=== PATIENT | female | born 1995 | race Hispanic/Latino ===

== ENCOUNTER 2018-12-18 17:56 | Emergency (ER) | payer OTHER ==
[2018-12-18] MEDS ORDERED: Sodium Chloride 0.9% 1,000 ML IV STA (18:19)
[2018-12-18 18:43] LABS: BASO % 0.4 % (0.0-2.0); EOS # 0.1 K/uL (0.0-0.7); EOS % 0.6 % (0.0-4.0); LYMPH # 2.6 K/uL (1.0-4.3); LYMPH % 21.6 % (20.0-40.0); MEAN CORPUSCULAR HEMOGLOBIN 30.9 pg (27.0-31.0); MEAN CORPUSCULAR HGB CONC 33.6 g/dL (33.0-37.0); MONO # 0.7 K/uL (0.0-0.8); MONO % 5.6 % (0.0-10.0); NEUT # 8.8 K/uL (1.8-7.0); NEUT % 71.8 % (50.0-75.0); RBC 4.52 Mil/uL (3.80-5.20); WHITE BLOOD COUNT 12.3 K/uL (4.8-10.8)
[2018-12-18 18:54] LABS: ALB/GLOB RATIO 1.4 (1.0-2.1); ALBUMIN 4.5 g/dL (3.5-5.0); ALT/SGPT 23 U/L (9-52); AST/SGOT 23 U/L (14-36); BLOOD UREA NITROGEN 15 mg/dl (7-17); CALCIUM 9.5 mg/dL (8.4-10.2); GFR NON-AFRICAN AMERICAN > 60
--- NOTE | 2018-12-18 19:04 | ED PDOC ---
HPI: SOB/CHF/COPD Time Seen by Provider: 12/18/18 18:09 Chief Complaint (Nursing): Shortness Of Breath Chief Complaint (Provider): Shortness Of Breath History Per: Patient History/Exam Limitations: no limitations Onset/Duration Of Symptoms: Days (x 4) Current Symptoms Are (Timing): Still Present Quality: "Pain" Associated Symptoms: Fever, Chest Pain (mild pressure) Additional Complaint(s): 23 year old female with a history of anxiety presents to the ED for evaluation of shortness of breath for four days. Patient reports since she feels as though she is unable to take a deep breath. She also reports mild chest pressure. Patient is not getting winded with exertion and denies a decrease in exercise tolerance. Yesterday, patient was seen at an urgent care where she had blood work, a chest x-ray and an EKG done. Today, she was told that her D-dimer is at "the high end of normal". Given reported shortness of breath, she was advised to come to the ER for possible CT. Patient does not take control p ills, but has a hormone infused IUD in place. She states that she was on a round trip flight to [place] last week. Denies cough, fever, leg swelling and calf pain. PMD: in [place] (no local doctor yet) - Risk Factors PE Risk Factors: Neg: Extremity Immobilization/Fx, Recent Major Surgery, Recent Hospitalization Past Medical History Reviewed: Historical Data, Nursing Documentation, Vital Signs Vital Signs: Last Vital Signs Temp Pulse 74 12/18/18 18:02 Resp 18 12/18/18 18:02 BP 145/81 12/18/18 18:02 Pulse Ox 100 12/18/18 18:02 - Medical History PMH: Anxiety - Surgical History Surgical History: No Surg Hx - Family History Family History: Denies: No Known Family Hx, Other Other Family History: clotting disorders - Home Medications Home Medications: Ambulatory Orders Medication Instructions Recorded Albuterol HFA [Ventolin HFA 90 2 puff IH Q4H PRN #1 inh 12/18/18 mcg/actuation (8 g)] Fexofenadine HCl [AlessandraNf] 180 mg PO DAILY #30 tab 12/18/18 - Allergies Allergies/Adverse Reactions: Allergies Allergy/AdvReac Type Severity Reaction Status Date / Time Sulfa (Sulfonamide Allergy RASH Verified 12/18/18 18:02 Antibiotics) Review of Systems ROS Statement: Except As Marked, All Systems Reviewed And Found Negative Cardiovascular: Positive for: Chest Pain (pressure) Respiratory: Positive for: Shortness of Breath Physical Exam - Reviewed Nursing Documentation Reviewed: Yes Vital Signs Reviewed: Yes - Physical Exam Appears: Positive for: No Acute Distress Head Exam: Positive for: ATRAUMATIC, NORMOCEPHALIC Skin: Positive for: Warm, Dry Eye Exam: Positive for: EOMI, PERRL ENT: Negative for: Pharyngeal Erythema, Tonsillar Exudate Neck: Positive for: Painless ROM, Supple Cardiovascular/Chest: Positive for: Regular Rate, Rhythm. Negative for: Murmur Respiratory: Positive for: Normal Breath Sounds. Negative for: Respiratory Distress Gastrointestinal/Abdominal: Positive for: Soft. Negative for: Tenderness Back: Positive for: Normal Inspection. Negative for: Decreased ROM Extremity: Positive for: Normal ROM. Negative for: Pedal Edema, Calf Tenderness, Deformity Lymphatic: Negative for: Adenopathy Neurological/Psych: Positive for: Awake. Negative for: Motor/Sensory Deficits - Laboratory Results Result Diagrams: 12/18/18 18:36 12/18/18 18:36 Lab Results: D-Dimer, Quantitative 898 ng/mlDDU (0-230) H 12/18/18 18:36 Total Bilirubin 0.3 mg/dl (0.2-1.3) 12/18/18 18:36 AST 23 U/L (14-36) 12/18/18 18:36 ALT 23 U/L (9-52) 12/18/18 18:36 Alkaline Phosphatase 62 U/L (38-126) 12/18/18 18:36 Total Protein 7.7 G/DL (6.3-8.2) 12/18/18 18:36 Albumin 4.5 g/dL (3.5-5.0) 12/18/18 18:36 Globulin 3.2 gm/dL (2.2-3.9) 12/18/18 18:36 Albumin/Globulin Ratio 1.4 (1.0-2.1) 12/18/18 18:36 - ECG ECG: Positive for: Interpreted By Me, Viewed By Me ECG Rhythm: Positive for: Normal QRS, Normal ST Segment, Sinus Rhythm (normal) Rate: 79 O2 Sat by Pulse Oximetry: 100 Medical Decision Making Medical Decision Makin:18 Impression: shortness of breath Differential diagnoses include but are not limited to: anxiety, walking pneumonia Initial Plan: --CTA Chest --EKG --BNP --CMP --CBC --Mag --Phos --TSH --Troponin --Urine dip --Urine preg --D-dimer --NS IV 1,000 mls Name: CHAR WALDROP Exam Date: Dec 18, 2018 7:22:31 PM EDT Modality Type: CT\\SR Description: CTA CHEST Gender: F Laterality: Not applicable : 94 Referring Physician: Maryuri Amezcua EXAM: CTA Chest with Intravenous Contrast for Pulmonary Embolism CLINICAL HISTORY: SOB TECHNIQUE: Axial CTA images of the chest with intravenous contrast using a pulmonary embolism protocol. Reconstructed images were created and reviewed. 230.79 mGy-cm CONTRAST: With; [id number] 90ML was administered without incident. COMPARISON: None provided. FINDINGS: PULMONARY ARTERIES No evidence of central or segmental pulmonary embolism is seen. AORTA There is no evidence for aneurysm or dissection of the thoracic aorta. LUNGS The lungs appear clear. PLEURAL SPACES No evidence of pneumothorax. No pleural effusion. HEART Heart size is within normal limits. No significant pericardial effusion. LYMPH NODES No lymphadenopathy is evident. BONES No focal osseous abnormality or acute fracture. UPPER ABDOMEN Images of the upper abdomen are unremarkable. IMPRESSION: Unremarkable pulmonary embolism protocol CTA of the chest. Electronically signed on Dec 18, 2018 7:46:16 PM EDT by: Live Anders M.D., Certified by [facility], Diagnostic Radiology DW pt findings. Pt will be rx'd meds for possible reactive airway/seasonal allergies. Followup with [employer] or PMD in 48 hours for reevaluation and possible referral to pulmonology or video camera operator Scribe Attestation: Documented by Ntay Jackson, acting as a scribe for Maryuri Amezcua MD Provider Scribe Attestation: All medical record entries made by the Scribe were at my direction and p ersonally dictated by me. I have reviewed the chart and agree that the record accurately reflects my personal performance of the history, physical exam, medical decision making, and the department course for this patient. I have also personally directed, reviewed, and agree with the discharge instructions and disposition Disposition - Clinical Impression Clinical Impression: Dyspnea Counseled Patient/Family Regarding: Studies Performed, Diagnosis - Disposition Referrals: [facility] [place] [Outside] [facility] [Outside] Disposition: Routine/Home Disposition Time: 21:15 Condition: IMPROVED Additional Instructions: FOLLOWUP WITH YOUR DOCTOR OR [email or web address] IN 48 HOURS FOR REEVALUATION AND FURTHER MANAGEMENT TAKE MEDICATIONS PRESCRIBED. Prescriptions: Albuterol HFA [Ventolin HFA 90 mcg/actuation (8 g)] 2 puff IH Q4H PRN #1 inh PRN Reason: ASTHMA Fexofenadine HCl [AlessandraNf] 180 mg PO DAILY #30 tab Instructions: Shortness of Breath (Dyspnea) (DC) Forms: [facility] (Brazilian)
[2018-12-18 19:05] LABS: B-TYPE NATRIURETIC PEPTIDE 34.8 pg/ml (0-450)
[2018-12-18] MEDS ORDERED: Iodixanol 320 MG/ML 100 ML BOTTLE IV ONE (19:16)
[2018-12-18] MEDS ORDERED: Sodium Chloride 0.9% 100 ML IV ONE (19:17)
[2018-12-18 22:18] VITALS: BP 116/66; PULSE 69; RESP 18; TEMP 98.5; O2SAT 98
--- NOTE | 2018-12-19 09:08 | CARD ---
APPROVED REPORT Date of service: 12/18/2018 EKG Measurement Heart [id number] [id number] <Conclusion> Normal sinus rhythm Normal ECG
--- NOTE | 2018-12-19 10:34 | CT ---
Date of service: 12/18/2018 PROCEDURE: CT Chest with contrast (Pulmonary Angiogram) HISTORY: sob COMPARISON: None available. TECHNIQUE: Axial computed tomography images were obtained of the chest in the pulmonary arterial phase of enhancement. Coronal and sagittal reformatted images were created and reviewed. Intravenous contrast dose: Visipaque 320, 80 cc Radiation dose: Total exam DLP = 230.78 mGy-cm. This CT exam was performed using one or more of the following dose reduction techniques: Automated exposure control, adjustment of the mA and/or kV according to patient size, and/or use of iterative reconstruction technique. FINDINGS: PULMONARY ARTERIES: Unremarkable. No pulmonary embolism. AORTA: No acute findings. No thoracic aortic aneurysm. No aortic atherosclerotic calcification or mural plaque present. LUNGS: Trace bilateral dependent atelectasis identified. No nodule, mass or pulmonary consolidation. PLEURAL SPACES: Unremarkable. No effusion or pneumothorax. HEART: Normal appearing right ventricular volume compared to left. No cardiomegaly. No significant pericardial effusion. LYMPH NODES: No lymphadenopathy. BONES, CHEST WALL: Unremarkable. No fracture or destructive lesion OTHER FINDINGS: Thoracic inlet appears unremarkable. IMPRESSION: Unremarkable CT pulmonary angiogram. No pulmonary embolus. Concordant preliminary report from [facility], 12/18/2018 7:46 p.m..
== END 2018-12-18 22:16 | disposition home or self-care (01) ==
LOC: H.ER 17:56
DX: R06.03 Acute respiratory distress (principal); J44.9 Chronic obstructive pulmonary disease, unspecified; Z88.2 Allergy status to sulfonamides
CPT/HCPCS: 71275; 80053; 81025; 83735; 83880; 84100; 84443; 84484; 85025; 85378; 93005; 99285; J7030; Q9967

== ENCOUNTER 2018-12-28 19:13 | Emergency (ER) | payer OTHER ==
[2018-12-28 19:25] VITALS: RESP 16
--- NOTE | 2018-12-28 22:14 | ED PDOC ---
HPI: SOB/CHF/COPD Time Seen by Provider: 12/28/18 21:13 Chief Complaint (Nursing): Shortness Of Breath Chief Complaint (Provider): shortness of breath History Per: Patient History/Exam Limitations: no limitations Onset/Duration Of Symptoms: Days (10), Waxing/Waning Current Symptoms Are (Timing): Still Present Additional Complaint(s): 23 y/o female presents for evaluation of intermittent shortness of breath x 10 days. Patient states she was evaluated here for same at onset and had blood work and CT chest which was all negative. Patient states she went to [facility] on Wednesday and came back yesterday, and while she was there she feels like her shortness of breath became more frequent, with associated intermittent chest discomfort and palpitations. Denies fever, nausea/vomiting, cough, congestion, leg pain/swelling. Past Medical History Reviewed: Historical Data, Nursing Documentation, Vital Signs Vital Signs: Last Vital Signs Temp 98.6 F 12/28/18 19:19 Pulse 79 12/28/18 19:19 Resp 16 12/28/18 21:56 BP 129/64 12/28/18 19:19 Pulse Ox 98 12/28/18 21:56 - Medical History PMH: Anxiety - Surgical History Surgical History: No Surg Hx - Family History Family History: States: No Known Family Hx - Living Arrangements Living Arrangements: With Family - Home Medications Home Medications: Ambulatory Orders Medication Instructions Recorded Albuterol HFA [Ventolin HFA 90 2 puff IH Q4H PRN #1 inh 12/18/18 mcg/actuation (8 g)] Fexofenadine HCl [AlessandraNf] 180 mg PO DAILY #30 tab 12/18/18 - Allergies Allergies/Adverse Reactions: Allergies Allergy/AdvReac Type Severity Reaction Status Date / Time Sulfa (Sulfonamide Allergy RASH Verified 12/18/18 18:02 Antibiotics) Review of Systems ROS Statement: Except As Marked, All Systems Reviewed And Found Negative Cardiovascular: Positive for: Chest Pain Respiratory: Positive for: Shortness of Breath Physical Exam - Reviewed Nursing Documentation Reviewed: Yes Vital Signs Reviewed: Yes - Physical Exam Appears: Positive for: Well, Non-toxic, No Acute Distress Head Exam: Positive for: ATRAUMATIC, NORMAL INSPECTION, NORMOCEPHALIC Skin: Positive for: Normal Color Eye Exam: Positive for: Normal appearance ENT: Positive for: Normal ENT Inspection Cardiovascular/Chest: Positive for: Regular Rate, Rhythm. Negative for: Chest Non Tender (tender to palpate mid-lower sternum, left anterior inferior intercostal spaces ) Respiratory: Positive for: Normal Breath Sounds Gastrointestinal/Abdominal: Positive for: Normal Exam Back: Positive for: Normal Inspection Extremity: Positive for: Normal ROM Neurological/Psych: Positive for: Awake, Alert, Oriented (x3) - Laboratory Results Result Diagrams: 12/28/18 22:39 12/28/18 22:39 - ECG ECG: Positive for: Viewed By Me (reviewed by ED attending) ECG Rhythm: Positive for: Sinus Rhythm O2 Sat by Pulse Oximetry: 98 - Progress ED Course And Treament: Case discussed with ED attending Dr. Hurtado, will check labs and venous duplex lower extremities -cbc -cmp -troponin -ekg -heater operator helper -IV toradol -venous duplex bilateral lower extremities Bilateral lower extremities venous duplex. Indication: shortness of breath. Real-time ultrasound images of the deep venous system with Doppler evaluation. Normal compression, spontaneity and augmentation. Normal color Doppler. No intraluminal thrombus is seen. IMPRESSION: No evidence of deep venous thrombosis Patient resting comfortably on re-eval, vitals stable Patient educated on findings, discharged with instructions to follow up with primary doctor within 2-3 days Return precautions given Disposition - Clinical Impression Clinical Impression: Dyspnea, Atypical chest pain - Patient ED Disposition Is Patient to be Admitted: No Counseled Patient/Family Regarding: Studies Performed, Diagnosis, Need For Fol lowup - Disposition Referrals: [facility] [Outside] Disposition: Routine/Home Disposition Time: 00:58 Condition: IMPROVED Instructions: Shortness of Breath (Dyspnea), Chest Pain Forms: [facility] (Vietnamese)
[2018-12-28 22:43] LABS: BASO # 0.1 K/uL (0.0-0.2); BASO % 0.6 % (0.0-2.0); EOS # 0.1 K/uL (0.0-0.7); EOS % 0.8 % (0.0-4.0); HEMOGLOBIN 13.3 g/dL (12.0-16.0); LYMPH % 28.6 % (20.0-40.0); MEAN CELL VOLUME 91.2 fl (81.0-99.0); MEAN CORPUSCULAR HEMOGLOBIN 31.2 pg (27.0-31.0); MEAN CORPUSCULAR HGB CONC 34.2 g/dL (33.0-37.0); MEAN PLATELET VOLUME 7.9 fl (7.2-11.7); MONO # 0.7 K/uL (0.0-0.8); MONO % 6.4 % (0.0-10.0); NEUT # 6.8 K/uL (1.8-7.0); NEUT % 63.6 % (50.0-75.0); NRBC % 0.1 % (0.0-0.0); RBC 4.27 Mil/uL (3.80-5.20); RED CELL DISTRIBUTION WIDTH 12.8 % (11.5-14.5); WHITE BLOOD COUNT 10.6 K/uL (4.8-10.8)
[2018-12-28 22:55] LABS: ALB/GLOB RATIO 1.5 (1.0-2.1); ALBUMIN 4.5 g/dL (3.5-5.0); ALT/SGPT 26 U/L (9-52); AST/SGOT 26 U/L (14-36); BLOOD UREA NITROGEN 18 mg/dl (7-17); CALCIUM 9.5 mg/dL (8.4-10.2); GFR NON-AFRICAN AMERICAN > 60
[2018-12-29 01:13] VITALS: BP 104/49; PULSE 69; TEMP 97.6; O2SAT 100
--- NOTE | 2018-12-29 12:17 | US ---
Date of service: 12/28/2018 PROCEDURE: Bilateral lower extremity venous duplex Doppler. HISTORY: r/out DVT COMPARISON: None available. TECHNIQUE: Bilateral common femoral, superficial femoral, popliteal and posterior tibial veins were evaluated. Flow was assessed with color Doppler, compressibility, assessment of phasic flow and augmentation response. FINDINGS: COMMON FEMORAL VEIN: Right CFV: Unremarkable. Left CFV: Unremarkable. SUPERFICIAL FEMORAL VEIN: Right SFV: Unremarkable. Left SFV: Unremarkable. POPLITEAL VEIN: Right Popliteal: Unremarkable. Left Popliteal: Unremarkable. POSTERIOR TIBIAL VEIN: Right PTV: Unremarkable. Left PTV: Unremarkable. OTHER FINDINGS: None. IMPRESSION: No evidence of deep venous thrombosis. The preliminary findings for this examination were reported by [facility] Rad[facility] at 12:09 a.m. on 12/29/2018. There is concurrence of this report with the preliminary findings.
--- NOTE | 2018-12-29 23:09 | CARD ---
APPROVED REPORT Date of service: 12/28/2018 EKG Measurement Heart [id number] <Conclusion> Normal sinus rhythm Normal Electrocardiogram
== END 2018-12-29 01:15 | disposition home or self-care (01) ==
LOC: H.ER 19:13
DX: R06.00 Dyspnea, unspecified (principal); R07.89 Other chest pain; F41.9 Anxiety disorder, unspecified; Z88.2 Allergy status to sulfonamides